=== PATIENT | male | born 1985 | race Caucasian/White ===

== ENCOUNTER 2020-11-22 02:25 | Emergency (ER) | payer OTHER ==
[~2020-11-22] VITALS: Ht 182.9 cm; Wt 75.0 kg
[2020-11-22] MEDS ORDERED: ONDANSETRON 2MG/ML, 2ML IVPush ONE (03:00)
[2020-11-22] MEDS ORDERED: SODIUM CHLORIDE FLUSH 10ML SYR IVF ONE (03:00)
[2020-11-22] MEDS ORDERED: PLEASE ENTER ALLERGIES MC SCH (03:00)
[2020-11-22] MEDS ORDERED: SODIUM CHLORIDE 0.9% 1,000ML IVBOLUS ONE (03:00)
--- NOTE | 2020-11-22 03:01 | NUR ---
PT BIB [place], C/C OF SYNCOPE EPISODE. PT FROM [place] AND STAYING AT [facility]. PT TOOK ONE HYDROCODONE, THAT HE SAYS WAS PRESCRIBED TO HIM (58 TABLETS) AND HE HAS NEVER TAKEN THIS MEDICATION BEFORE. PT STATES HE TOOK ONE PILL AT APPROX 2300 LAST NIGHT. THEN WENT TO BED. PT STATES HE WOKE UP FLUSHED AND WARM, AND WENT TO THE BATHROOM. WHILE ON THE COMMODE PT HAD SYNCOPE EPISODE APPROXIMATELY 10 SECONDS, PER THE . ON EMS ARRIVAL THEY STATE PT HAD SECOND SYNCOPE EPISODE WHILE THEY WERE TRYING TO START AN IV.
[2020-11-22 03:19] LABS: ALANINE AMINOTRANSFERASE 86 U/L (12-78); ALBUMIN 4.1 g/dL (3.4-5.0); ANION GAP 4 mmol/L (5-15); CALCIUM 9.2 mg/dL (8.5-10.1); CHLORIDE 104 mmol/L (98-107); CREATININE 1.25 mg/dL (0.7-1.3)
[2020-11-22 03:21] LABS: ALKALINE PHOSPHATASE 87 U/L (45-117); BILIRUBIN,TOTAL 0.6 mg/dL (0.2-1.0); TOTAL PROTEIN 7.7 g/dL (6.4-8.2)
--- NOTE | 2020-11-22 03:33 | NUR ---
ONDANSETRON MED HELD AT THIS TIME, PT WITHOUT NAUSEA AND ALSO STATES HE RECEIVED ZOFRAN ENROUTE BY EMS.
[2020-11-22 03:38] LABS: BASOPHILS % (AUTO) 1 % (0-1); EOSINOPHILS % (AUTO) 3 % (1-7); LYMPHOCYTES % (AUTO) 35 % (22-44); MEAN CORPUSCULAR HEMOGLOBIN 30.5 pg (27.5-34.5); MEAN CORPUSCULAR HGB CONC 35.4 g/dL (33.2-36.2); MEAN PLATELET VOLUME 8.1 fL (7.4-10.4); MONOCYTES % (AUTO) 8 % (2-9); NEUTROPHILS % (AUTO) 53 % (42-75); PLATELET COUNT 325 x10^3/uL (130-400); RED BLOOD COUNT 4.98 x10^6/uL (4.38-5.82); RED CELL DISTRIBUTION WIDTH 12.8 % (9.4-14.8)
[2020-11-22 04:12] LABS: MD NO
--- NOTE | 2020-11-22 04:22 | NUR ---
PT A&OX4, SITTING UP IN BED. PT FEELS WAY BETTER, MD TO BEDSIDE TO SPEAK WITH PT AND UPDATE PT. PIV D/C'D AND CATH INTACT.
--- NOTE | 2020-11-22 04:34 | NUR ---
PT GIVEN F/U AND D/C INSTRUCTIONS AND HE V/U. PT AMBULATING TO DISCHARGE, AND PIV REMOVED, NOTED BEFORE.
[2020-11-22 04:35] VITALS: BP 117/78
== END 2020-11-22 04:36 | disposition home or self-care (01) ==
LOC: ED 02:55
DX: R55 Syncope and collapse (principal); R94.5 Abnormal results of liver function studies
CPT/HCPCS: 36415; 80053; 85025; 93005; 96360; 99284; J7030